=== PATIENT | male | born 1960 | race Caucasian/White ===

== ENCOUNTER → 2024-08-11 | Outpatient (CLI) | payer OTHER, SELFPAY ==
--- NOTE | 2024-08-11 15:07 | EKG_ITS ---
[facility] Test Date: 2024-08-11 Pat Name: LISET REYES Department: Room: - Gender: Male Continuous Miner: MADELYN : 1960 Requested By: PRESTON WEBB Order Number: [id number] Reading MD: PRESTON WEBB Measurements Intervals [place] Rate: 75 P: 40 W[place]: 152 QRS: 22 QRSD: 91 T: 42 QT: 366 QTc: 411 Interpretive Statements SINUS RHYTHM POSSIBLE RIGHT VENTRICULAR CONDUCTION DELAY Compared to ECG 10/01/2023 16:31:51 No significant changes /store/S0/[id number]/[id number].pdf
== END | disposition home or self-care (01) ==
PROVIDERS: PCP Nurse Practitioner Family; Referring Provider Nurse Practitioner Family; Visit Provider Nurse Practitioner Family
DX: R07.9 Chest pain, unspecified (principal); R00.2 Palpitations
CPT/HCPCS: 93005